=== PATIENT | male | born 1980 | race Caucasian/White ===

== ENCOUNTER 2017-09-09 18:19 | Emergency (ER) | END 2017-09-09 20:22 | disposition home or self-care (01) ==

== ENCOUNTER 2019-02-27 14:21 | Emergency (ER) | payer MEDICAID ==
[~2019-02-27] VITALS: Ht 182.9 cm; Wt 69.5 kg
[~2019-02-27 14:21] MED LIST: CEPH-443 PO; HYDR-3498 PO; HYDR-4011 PO; IBUP-1542 PO; NAPR-985 PO; SULF1TAB31 PO
[2019-02-27 14:22] VITALS: BP 136/70; PULSE 102; RESP 16; Ht 182.9 cm; Wt 69.5 kg
[2019-02-27] MEDS ORDERED: ONDANSETRON (ODT) 4 MG TAB ODT STA (14:42)
[2019-02-27] MEDS ORDERED: LIDOCAINE 1% (MPF) 5 ML VIAL INJ ONE (15:00)
[2019-02-27] MEDS ORDERED: CEFTRIAXONE 1 GM INJ IM ONE (15:00)
[2019-02-27] MEDS ORDERED: HYDROCODONE/APAP (5/325) TAB PO ONE (15:00)
--- NOTE | 2019-02-27 15:03 | ERD ---
ER Documentation Chief Complaint Chief Complaint R leg skin infection x4 days from ingrown hair. 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 4 days ago patient had an ingrown hair in his right thigh which he removed with forceps. He states ever since become very red and swollen. Denies any fevers. He has not taken medications for symptoms. Patient had a history of a splenectomy and is concerned about fighting infection. NKDA. Surgical history splenectomy and laser back surgery. Social history smokes cigarettes occasionally. Drug use denies ROS All systems reviewed and are negative except as per history of present illness. Medications Home Meds Active Scripts Naproxen* (Naprosyn*) 500 Mg Tablet, 500 MG PO BID PRN for PAIN AND/OR INFLAMMATION, #30 TAB Prov:ZHOU BLACK PA-C 02/27/19 Hydrocodone/Acetaminophen (Lincoln 5-325 Tablet) 1 Each Tablet, 1 TAB PO Q6H PRN for PAIN, #7 TAB Prov:ZHOU BLACK PA-C 02/27/19 Cephalexin* (Keflex*) 500 Mg Capsule, 500 MG PO QID for 7 Days, CAP Prov:ZHOU BLACK PA-C 02/27/19 Sulfamethoxazole/Trimethoprim* (Bactrim Ds* Tablet) 1 Each Tablet, 1 TAB PO BID, #14 TAB Prov:ZHOU BLACK PA-C 02/27/19 Hydrocodone/Acetaminophen (Lincoln 5-325 Tablet) 1 Each Tablet, 1 EACH PO BID for 5 Days, #10 TAB Prov:LITA HUTCHINS MD 09/09/17 Ibuprofen* (Motrin*) 600 Mg Tab, 600 MG PO Q8 PRN for PAIN AND OR ELEVATED TEMP, #15 TAB Prov:LITA HUTCHINS MD 09/09/17 Hydrocodone Bit-Acetaminophen* (Lincoln*) 5-325 Mg Tab, 1 TAB PO Q6 PRN for PAIN, #14 TAB Prov:ELENA LIM PA-C 01/13/15 Allergies Allergies: Coded Allergies: No Known Allergy (Unverified , 02/27/19) PMhx/Soc History of Surgery: Yes (reverse colostomy, spleen) Anesthesia Reaction: No Hx Neurological Disorder: No Hx Respiratory Disorders: No Hx Cardiac Disorders: No Hx Psychiatric Problems: No Hx Miscellaneous Medical Probl: No Hx Alcohol Use: Yes (social) Hx Substance Use: No Hx Tobacco Use: Yes Smoking Status: Current every day smoker FmHx Family History: No diabetes, No coronary disease, No other Physical Exam Vitals Vital Signs Date Temp Pulse Resp B/P (MAP) Pulse Ox O2 O2 Flow FiO2 Time Delivery Rate 02/27/19 99.2 102 16 136/70 99 14:22 (92) Physical Exam GENERAL: The patient is well-appearing, well-nourished, in no acute distress HEENT: Atraumatic. Conjunctivae are pink. Pupils equal, round, and reactive to light. There is no scleral icterus. Tympanic membranes clear bilaterally. Oropharynx clear. CHEST: Clear to auscultation bilaterally. There are no rales, wheezes or rhonchi. HEART: Regular rate and rhythm. No murmurs, clicks, rubs or gallops. EXTREMITIES: Equal pulses bilaterally. There is no peripheral clubbing, cyanosis or edema. No focal swelling or erythema. Full range of motion. NEUROLOGIC: Alert and oriented. Cranial nerves II through XII intact. Motor strength in all 4 extremities with 5 out of 5 strength. Sensation grossly intact. SKIN: Erythema and induration noted to the right thigh with no lymphatic str eaking or fluctuance. Results 24 hrs Current Medications Medications Dose Sig/Hortencia Start Time Status Last (Trade) Ordered Route PRN Stop Time Admin Dose Reason Admin Ceftriaxone 1 gm ONCE ONCE 02/27/19 02/27/19 Sodium IM 15:00 14:46 (Rocephin) 02/27/19 15:01 Lidocaine 5 ml ONCE ONCE 02/27/19 02/27/19 (Xylocaine INJ 15:00 14:46 1% (Mpf)) 02/27/19 15:01 1 tab ONCE ONCE 02/27/19 02/27/19 Acetaminophen PO 15:00 14:46 / 02/27/19 15:01 Hydrocodone Bitart (Lincoln (5/325)) Ondansetron 4 mg ONCE STAT 02/27/19 DC 02/27/19 HCl (Zofran ODT 14:42 14:46 Odt) 02/27/19 14:43 Procedures/MDM ER course: Rocephin given in ED. MDM: 38-year-old male presenting with infection to right thigh. Patient has no findings of abscess formation and will be discharged with oral antibiotics. Patient is told if symptoms change or worsen to return immediately to the ER. Patient is recommended to apply warm compresses take oral antibiotics and return in 2 days for probable incision and drainage at that time. All questions answered at discharge Departure Diagnosis: Primary Impression: Cellulitis Condition: Stable Patient Instructions: Cellulitis Referrals: [facility], [facility] YOU HAVE RECEIVED A MEDICAL SCREENING EXAM AND THE RESULTS INDICATE THAT YOU DO NOT HAVE A CONDITION THAT REQUIRES URGENT TREATMENT IN THE EMERGENCY DEPARTMENT. FURTHER EVALUATION AND TREATMENT OF YOUR CONDITION CAN WAIT UNTIL YOU ARE SEEN IN YOUR DOCTORS OFFICE WITHIN THE NEXT 1-2 DAYS. IT IS YOUR RESPONSIBILITY TO MAKE AN APPOINTMENT FOR FOLOW-UP CARE. IF YOU HAVE A PRIMARY DOCTOR --you should call your primary doctor and schedule an appointment IF YOU DO NOT HAVE A PRIMARY DOCTOR YOU CAN CALL OUR PHYSICIAN REFERRAL HOTLINE AT IF YOU CAN NOT AFFORD TO SEE A PHYSICIAN YOU CAN CHOSE [facility] THE FOLLOWING [facility] [address] [facility] [address] [facility] [address] [address] [facility] [address] [facility] [facility] [address] [facility] [address] [facility]. [facility]. [address] Additional Instructions: FOLLOW UP WITH YOUR PRIMARY CARE PHYSICIAN TOMORROW.Return to this facility if you are not improving as expected. ZHOU BLACK PA-C Feb 27, 2019 15:03
== END 2019-02-27 14:58 | disposition home or self-care (01) ==
LOC: FTE 14:21
DX: L03.115 Cellulitis of right lower limb (principal); F17.210 Nicotine dependence, cigarettes, uncomplicated
CPT/HCPCS: 96372; J0696; Z7502; Z7610